=== PATIENT | male | born 1945 | race Caucasian/White ===

== ENCOUNTER 2016-12-11 10:53 | Inpatient (IN) | payer MEDICARE ==
[~2016-12-11] VITALS: Ht 172.7 cm; Wt 104.3 kg
[2016-12-11 11:00] VITALS: BP 80/62
[2016-12-11 11:44] VITALS: BP 97/58
[2016-12-11 11:45] LABS: BASOPHILS % (AUTO) 0.6 % (0.0-2.0); EOSINOPHILS % (AUTO) 0.2 % (0.0-3.0); LYMPHOCYTES % (AUTO) 12.8 % (20.0-45.0); MEAN CORPUSCULAR HEMOGLOBIN 30.3 PG (27.0-31.0); MEAN CORPUSCULAR HGB CONC 33.9 G/DL (32.0-36.0); MEAN CORPUSCULAR VOLUME 89 FL (80-99); MEAN PLATELET VOLUME 8.1 FL (6.5-10.1); MONOCYTES % (AUTO) 5.8 % (1.0-10.0); NEUTROPHILS % (AUTO) 80.5 % (45.0-75.0); PLATELET COUNT 199 K/UL (150-450); RED BLOOD COUNT 4.03 M/UL (4.70-6.10); RED CELL DISTRIBUTION WIDTH 11.7 % (11.6-14.8)
[2016-12-11 11:50] LABS: INR 1.1 (0.9-1.1); PROTHROMBIN TIME 10.7 SEC (9.30-11.50)
[2016-12-11 11:52] LABS: ALANINE AMINOTRANSFERASE 13 U/L (3-41); ALBUMIN/GLOBULIN RATIO 1.2 (1.0-2.7); ANION GAP 13 (5-15); ASPARTATE AMINO TRANSFERASE 16 U/L (5-40); CALCIUM 9.2 mg/dL (8.6-10.2); CARBON DIOXIDE 25 mEQ/L (20-30); CHLORIDE 101 mEQ/L (98-107); CREATININE 0.9 mg/dL (0.7-1.2); GLOMERULAR FILTRATION RATE > 60 mL/min (>60); HEMOLYSIS 5; POTASSIUM 4.1 mEQ/L (3.4-4.9); SODIUM 139 mEQ/L (135-145); TROPONIN I < 0.30 ng/mL (<=0.30)
[2016-12-11 12:03] LABS: CKMB < 1.5 ng/mL (< 6.7)
[2016-12-11] MEDS ORDERED: SIMVASTATIN5 MG ORAL (13:09)
[2016-12-11] MEDS ORDERED: LISINOPRIL2.5 MG ORAL (13:09)
[2016-12-11] MEDS ORDERED: LEVOTHYROXINE150 MCG ORAL (13:09)
[2016-12-11] MEDS ORDERED: HYDROCHLOROTH12.5 M2 ORAL (13:09)
[2016-12-11 13:36] LABS: APPEARANCE,URINE SLIGHTLY CLOUDY; KETONES,URINE 2+ (NEGATIVE); LEUKOCYTE ESTERASE ,URINE 1+ (NEGATIVE); NITRITE,URINE NEGATIVE (NEGATIVE); PH,URINE 5 (4.5-8.0); PROTEIN,URINE NEGATIVE (NEGATIVE); UROBILINOGEN,URINE NORMAL MG/DL (0.0-1.0)
--- NOTE | 2016-12-11 13:37 | Emergency Room Report ---
History of Present Illness General Chief Complaint: Generalized Weakness Source: Patient, Medical Record Present Illness HPI Patient reports that over the past night he had 4 episodes of bright red blood per rectum patient has had previous diverticulitis has had previous resection Today he was feeling extremely weak and lethargic He presented to his physician's office who sent him to the emergency room Denies any chest pain or shortness of breath denies any back or flank pain he does have general fatigue he had some initial mild abdominal cramping which has resolved Allergies: Coded Allergies: PENICILLINS (Verified Allergy, Unknown, 12/11/16) Patient History Past Medical History: see triage record Pertinent Family History: none Reviewed Nursing Documentation: PMH: Agreed, PSxH: Agreed Nursing Documentation-PMH Hx Hypertension: Yes Hx Gastrointestinal Problems: Yes - Diverticulitis, Renal cyst, hemorrhoids, Liver cyst Review of Systems All Other Systems: negative except mentioned in HPI Physical Exam Vital Signs Date Time Temp Pulse Resp B/P Pulse Ox O2 Delivery O2 Flow Rate FiO2 12/11/16 10:35 98.2 77 18 111/74 99 Room Air Sp02 EP Interpretation: reviewed, normal General Appearance: well appearing, no apparent distress Head: normocephalic, atraumatic Eyes: bilateral eye EOMI, bilateral eye PERRL ENT: hearing grossly normal, normal pharynx, TMs + canals normal, uvula midline Neck: full range of motion, supple, no meningismus, no bony tend Respiratory: lungs clear, normal breath sounds, no rhonchi, no respiratory distress, no retraction, no accessory muscle use Cardiovascular #1: normal peripheral pulses, regular rate, rhythm, no edema, no gallop, no JVD, no murmur Gastrointestinal: normal bowel sounds, non tender, soft, no mass, no organomegaly, non-distended, no guarding, no hernia, no pulsatile mass, no rebound Genitourinary: no CVA tenderness Musculoskeletal: normal inspection Neurologic: oriented x3, responsive, infection control preventionist III-XII nml as tested, motor strength/ tone normal, sensory intact Psychiatric: mood/affect normal Skin: normal color, no rash, warm/dry, palpation normal Lymphatic: normal inspection, no adenopathy Medical Decision Making Diagnostic Impression: Primary Impression: GI bleeding ER Course Given the patient's previous history and presentation, consideration for GI bleeding as high Patient has had previous colonoscopy however the last one was 2 years ago At this time baseline blood work was initiated which shows a mildly anemic finding patient remains hemodynamically stable in the rn cardiac And is admitted for further inpatient care Please note that the patient's primary physician was contacted however there is no covering physician at this facility Labs Test 12/11/16 11:30 12/11/16 13:25 White Blood Count 12.0 K/UL (4.8-10.8) Red Blood Count 4.03 M/UL (4.70-6.10) Hemoglobin 12.2 G/DL (14.2-18.0) Hematocrit 36.0 % (42.0-52.0) Mean Corpuscular Volume 89 FL (80-99) Mean Corpuscular Hemoglobin 30.3 PG (27.0-31.0) Mean Corpuscular Hemoglobin Concent 33.9 G/DL (32.0-36.0) Red Cell Distribution Width 11.7 % (11.6-14.8) Platelet Count 199 K/UL (150-450) Mean Platelet Volume 8.1 FL (6.5-10.1) Neutrophils (%) (Auto) 80.5 % (45.0-75.0) Lymphocytes (%) (Auto) 12.8 % (20.0-45.0) Monocytes (%) (Auto) 5.8 % (1.0-10.0) Eosinophils (%) (Auto) 0.2 % (0.0-3.0) Basophils (%) (Auto) 0.6 % (0.0-2.0) Prothrombin Time 10.7 SEC (9.30-11.50) Prothromb Time International Ratio 1.1 (0.9-1.1) Activated Partial Thromboplast Time 25 SEC (23-33) Sodium Level 139 mEQ/L (135-145) Potassium Level 4.1 mEQ/L (3.4-4.9) Chloride Level 101 mEQ/L (98-107) Carbon Dioxide Level 25 mEQ/L (20-30) Anion Gap 13 (5-15) Blood Urea Nitrogen 18 mg/dL (7-23) Creatinine 0.9 mg/dL (0.7-1.2) Estimat Glomerular Filtration Rate > 60 mL/min (>60) Glucose Level 119 mg/dL (74-106) Calcium Level 9.2 mg/dL (8.6-10.2) Total Bilirubin 0.4 mg/dL (0.0-1.2) Aspartate Amino Transf (AST/SGOT) 16 U/L (5-40) Alanine Aminotransferase (ALT/SGPT) 13 U/L (3-41) Alkaline Phosphatase 48 U/L (40-129) Total Creatine Kinase 29 U/L (38-174) Creatine Kinase MB < 1.5 ng/mL (< 6.7) Creatine Kinase MB Relative Index Troponin I < 0.30 ng/mL (<=0.30) Total Protein 6.0 g/dL (6.6-8.7) Albumin 3.3 g/dL (3.5-5.2) Globulin 2.7 g/dL Albumin/Globulin Ratio 1.2 (1.0-2.7) EKG Diagnostic Results Rate: normal Rhythm: NSR ST Segments: no acute changes Rhythm Strip Diag. Results EP Interpretation: yes Rate: 77 Rhythm: NSR, no PVC's, no ectopy Chest X-Ray Diagnostic Results EP Interpretation: Yes Findings: no consolidation, no effusion, no pneumothorax Number of Views: 1 Last Vital Signs Date Time Temp Pulse Resp B/P Pulse Ox O2 Delivery O2 Flow Rate FiO2 12/11/16 11:44 68 18 97/58 99 Room Air 12/11/16 10:35 98.2 Status: improved Disposition: ADMITTED INPATIENT Condition: Serious Referrals: NON PHYSICIAN (PCP) YENI ARNOLD D.O. Dec 11, 2016 13:37
[2016-12-11 13:42] VITALS: BP 103/66
--- NOTE | 2016-12-11 13:42 | Diagnostic Imaging Report ---
Indication: Chest Pain Comparison: None A single view chest radiograph was obtained. Findings: Cardiomediastinal appearance is within normal limits for age. Pulmonary vascularity is appropriate. The diaphragmatic contour is smooth and costophrenic angles are sharp. No pleural effusions are identified. The bones are osteopenic. Impression: No acute findings
[2016-12-11 13:56] LABS: BACTERIA,URINE OCCASIONAL /HPF; RBC,URINE 0-2 /HPF (0 - 0); SQUAMOUS EPITHELIAL CELL,UR OCCASIONAL /LPF (NONE/OCC)
[2016-12-11 15:27] VITALS: BP 117/60
[2016-12-11] MEDS ORDERED: Zolpidem 5mg tab ORAL PRN (17:30)
[2016-12-11 18:22] VITALS: BP 110/60
--- NOTE | 2016-12-11 20:25 | General Progress Note ---
Assessment/Plan Assessment/Plan GI CONSULT Dictated Colonoscopy tomorrow am, if tying machine operator available Thank you Darby Singleton MD Subjective Allergies: Coded Allergies: PENICILLINS (Verified Allergy, Unknown, 12/11/16) Objective Last 24 Hour Vital Signs Date Time Temp Pulse Resp B/P Pulse Ox O2 Delivery O2 Flow Rate FiO2 12/11/16 16:21 98.2 77 18 117/60 99 Room Air 12/11/16 15:27 102 18 117/60 99 Room Air 12/11/16 13:42 66 18 103/66 99 Room Air 12/11/16 11:44 68 18 97/58 99 Room Air 12/11/16 11:00 71 18 80/62 99 Room Air 12/11/16 10:35 98.2 77 18 111/74 99 Room Air Laboratory Tests 12/11/16 11:30: White Blood Count 12.0H, Red Blood Count 4.03L, Hemoglobin 12.2L, Hematocrit 36.0L, Mean Corpuscular Volume 89, Mean Corpuscular Hemoglobin 30.3, Mean Corpuscular Hemoglobin Concent 33.9, Red Cell Distribution Width 11.7, Platelet Count 199, Mean Platelet Volume 8.1, Neutrophils (%) (Auto) 80.5H, Lymphocytes ( %) (Auto) 12.8L, Monocytes (%) (Auto) 5.8, Eosinophils (%) (Auto) 0.2, Basophils (%) (Auto) 0.6, Prothrombin Time 10.7, Prothromb Time International Ratio 1.1, Activated Partial Thromboplast Time 25, Sodium Level 139, Potassium Level 4.1, Chloride Level 101, Carbon Dioxide Level 25, Anion Gap 13, Blood Urea Nitrogen 18, Creatinine 0.9, Estimat Glomerular Filtration Rate > 60, Glucose Level 119H, Calcium Level 9.2, Total Bilirubin 0.4, Aspartate Amino Transf (AST/SGOT) 16, Alanine Aminotransferase (ALT/SGPT) 13, Alkaline Phosphatase 48, Total Creatine Kinase 29L, Creatine Kinase MB < 1.5, Creatine Kinase MB Relative Index , Troponin I < 0.30, Total Protein 6.0L, Albumin 3.3L, Globulin 2.7, Albumin/Globulin Ratio 1.2 12/11/16 13:25: Urine Color Yellow, Urine Appearance Slightly cloudy, Urine pH 5, Urine Specific [place] 1.020, Urine Protein Negative, Urine Glucose (UA) Negative, Urine Ketones 2+H, Urine Occult Blood Negative, Urine Nitrite Negative, Urine Bilirubin Negative, Urine Urobilinogen Normal, Urine Leukocyte Esterase 1+H, Urine RBC 0-2H, Urine WBC 2-4, Urine Squamous Epithelial Cells Occasional, Urine Bacteria Occasional Height (Feet): 5 Height (Inches): 8.00 Weight (Pounds): 230 DARBY SINGLETON Dec 11, 2016 20:25
[2016-12-11] MEDS ORDERED: Bisacodyl EC 5mg tab ORAL ONE (20:30)
[2016-12-11] MEDS ORDERED: Magnesium Citrate Liq Btl ORAL ONE (20:30)
--- NOTE | 2016-12-11 22:09 | History and Physical Report ---
DATE OF ADMISSION: 12/11/2016 REASON FOR ADMISSION: Possible GI bleed. HISTORY OF PRESENT ILLNESS: The patient is a 71-year-old male with evidence of four episodes of bright red blood per rectum. The patient with prior history of diverticulitis and diverticulosis. The patient has had a prior resection as well. The patient is fairly extremely weak, fatigue, and lethargic. The patent presents to his doctor's office and was sent to the emergency room. Currently, the patient denies chest pain and shortness of breath. He denies any back pain. Denies any hematemesis. The patient does have some mild abdominal pain and cramping that has been ongoing for the past one day only. PAST MEDICAL HISTORY: Essentially notable for the above diverticulitis, diverticulosis, renal cyst, hemorrhoids, MEDICATIONS: Reviewed. ALLERGIES: Reviewed. SOCIAL HISTORY: Nonsmoker and nondrinker at present. The patient is independent. REVIEW OF SYSTEMS: Otherwise negative with the exception of the above. PHYSICAL EXAMINATION: GENERAL: The patient is well-developed male comfortable. VITAL SIGNS: Blood pressure 117/60, temperature 98.2 degrees, pulse 77, respiratory rate 18, and saturation 99%. HEENT: Fairly negative. NECK: Supple. No adenopathy. LUNGS: Fairly clear. Symmetric. CARDIAC: S1 and S2. Regular rate and rhythm without murmurs, rubs, or gallops. ABDOMEN: Minimal tenderness. Positive bowel sounds. No hepatosplenomegaly. EXTREMITIES: No cyanosis or clubbing. No edema. LABORATORY DATA: Reviewed. White count 12, hemoglobin 12.2, hematocrit 36, and platelets 199,000. Electrolytes otherwise are negative. Blood sugar 119. Albumin 3.3. IMPRESSION: 1. Low gastrointestinal bleed. 2. Mild anemia. 3. Hypertension. 4. Hypercholesterolemia. 5. History of prior diverticulitis. RECOMMENDATIONS: Supportive care. IV hydration. Obtain GI evaluation. Monitor hemoglobin and hematocrit and provide Protonix. The patient may need a colonoscopy for further evaluation. We will discuss with the Gastroenterology and defer to his expertise. Rohit Fabian M.D. DR: Ebenezer JOB#: [id number] CC: QUE
[2016-12-12] MEDS ORDERED: Lisinopril 2.5mg tab ORAL SCH (09:00)
--- NOTE | 2016-12-14 08:58 | Consultation ---
DATE OF CONSULTATION: 12/11/2016 CHIEF COMPLAINT: I was asked to see this patient by Dr. Rohit Fabian for evaluation of gastrointestinal bleeding. HISTORY OF PRESENT ILLNESS: The patient is a pleasant 71-year-old white man who noted sudden onset of the hematochezia last night as well as here. He had some left-sided abdominal cramps and he subsequently had bleeding. He . The patient has had a history of diverticulitis and had diverticulitis surgery happened in 1997 and subsequently in 2010 he had a sigmoid resection. He also has had a previous history of hemorrhoids. The patient had a colonoscopy about two years ago and a polyp was found and removed. PAST MEDICAL HISTORY: History of hypertension, hypercholesterolemia, and hypothyroidism. FAMILY HISTORY: Positive for breast cancer in mother and lung cancer in grandmother. SOCIAL HISTORY: The patient is . He has not smoked since 2011. He drinks occasionally. REVIEW OF SYSTEMS: Otherwise negative. MEDICATIONS: See chart list for details. PHYSICAL EXAMINATION: GENERAL: Pleasant white man, seen in the emergency room. HEENT: Normocephalic and atraumatic. Sclerae are anicteric. Oropharynx clear. NECK: Supple. CHEST: Clear to auscultation. CARDIOVASCULAR: Revealed regular rate. ABDOMEN: Soft. Good bowel sounds. There is no organomegaly. EXTREMITIES: No edema. LABORATORY DATA: Noted. ASSESSMENT: This patient presents with acute gastrointestinal bleeding, which appears to be lower in nature. Differential diagnosis would include diverticular bleeding as the patient has a history of diverticulosis. Also, he may have hemorrhoidal bleeding, but the amount of bleeding appears to be too significant for hemorrhoids. Indications, risks, alternatives, and possible complications of colonoscopy were explained to the patient and he agrees to proceed. RECOMMENDATIONS: 1. Keep the patient NPO. 2. Gastrointestinal lavage. 3. Possible colonoscopy tomorrow. 4. Followup CBC. Thank you for asking me to participate in the care of this patient. Darby Singleton M.D. DR: PITA JOB#: [id number] CC:
--- NOTE | 2016-12-14 12:48 | Discharge Summary ---
Discharge Summary Hospital Course Date of Admission Dec 11, 2016 at 12:39 Date of Discharge Dec 11, 2016 at 22:45 Admitting Diagnosis g.i bleed HPI Austin lAmonte is a 71 year old male who was admitted on Dec 11, 2016 at 12:39 for Gi Bleed Hospital Course dc summary # [id number] Discharge Condition Upon Discharge: stable Discharge Disposition Patient signed AMA Discharge Diagnoses: Discharge Instructions Discharge Instructions Special Instructions I have been assigned to complete a D/C Summary on this account. I was not involved in the patient management Joanne Cardoso NP ([place]) Dec 14, 2016 12:48
--- NOTE | 2016-12-14 14:01 | Cardiology Report ---
APPROVED REPORT EKG Measurement Heart [id number] Normal sinus rhythm Normal ECG
--- NOTE | 2016-12-15 01:08 | Discharge Summary 2 SIG ---
DATE OF ADMISSION: 12/11/2016 DATE OF SIGNING AGAINST MEDICAL ADVISE : 12/11/2016 REASON FOR ADMISSION: 71-year-old male came to the emergency room complaining of bright red blood per rectum last night [id number]. The patient with history of diverticulitis , and apparently in the past had some surgery for that. He felt weak and lethargic. No chest pain. No shortness of breath. No back or flank pain. Patient reported mild abdominal cramps, which subsequently resolved. EKG revealed normal sinus rhythm. No acute changes. Chest x-ray revealed no consolidation, effusion, or pneumothorax. The patient remained hemodynamically stable on the monitor worker. Admitted for further inpatient care. ADMITTING DIAGNOSES: 1. Lower gastrointestinal bleeding. 2. Mild anemia. 3. History of diverticulitis 4. Hypertension. HOSPITAL STAY: The patient was admitted to the hospital. The patient was started on the IV fluids. GI consult was requested. GI specialist seen and evaluated the patient. Patient was started on PPI. Supplemental oxygen and pulmonary toilet were provided on as needed basis. Pain management was provided. DVT prophylaxis was provided. Blood pressure was managed with current antihypertensive regimen and was stable. Statin continued. GI recommended to perform colonoscopy on 12/12/2016, however, it was Wednesday and was unable to arrange on that day, therefore the procedure was rescheduled for 12/14/16. When the patient heard about that , he decided to sign against medical advice form The risks and consequences of signing against medical advice were explained to the patient. The patient signed the form and left without awaiting for the doctor to call back and speak with the patient. DISCHARGE DIAGNOSES: 1. Lower gastrointestinal bleeding. 2. History of diverticulitis with previous surgery 3. Diabetes. 4. Hypertension. 5. Hypercholesteremia. Rohit Fabian M.D. I have been assigned to dictate discharge summary on this account and I was not involved in the patient's management. Joanne Cardoso ([facility] CenterIoana N.PGilmer DR: HARIS JOB#: [id number] CC: QUE
== END 2016-12-11 22:45 | disposition left against medical advice (07) | DRG 379 ==
LOC: EDBD 10:53 → EMR 12:38 → 4E 12:39 → EDBEDREQ 14:59 → 4W 16:53
DX: K92.2 Gastrointestinal hemorrhage, unspecified (principal); I10 Essential (primary) hypertension; D64.9 Anemia, unspecified; E78.00 Pure hypercholesterolemia, unspecified; E03.9 Hypothyroidism, unspecified; Z88.0 Allergy status to penicillin; Z53.21 Procedure and treatment not carried out due to patient leaving prior to being seen by health care provider
CPT/HCPCS: 36415; 71010; 80053; 81003; 82550; 82553; 84484; 85025; 85610; 85730; 87040; 93005